=== PATIENT | female | born 1980 ===

== ENCOUNTER 2017-05-13 08:37 | Emergency (ER) | payer MEDICAID, OTHER ==
[2017-05-13 09:14] VITALS: RESP 18
[2017-05-13] MEDS ORDERED: Oxycodone/Acetaminophen 5/325 mg Tab PO STA (10:00)
[2017-05-13] MEDS ORDERED: Sodium Chloride 0.9% 1,000 ML IV ONE (10:02)
--- NOTE | 2017-05-13 10:02 | C.PDOC ---
History Of Present Illness FEVER, MYALGIA CHILLS X 2 WEEKS. +SICK CONTACT W FLU. EVAL 05/10 @ [facility], NEG UCX. PERSIST SX EXAM +RIGOR HEENT NEG LUNGS CTA B/L NO W/R/R ABD NEG REMAINDER NEG Time Seen by Provider: 05/13/17 09:48 Chief Complaint (Nursing): Flu-like Symptoms History Per: Patient History/Exam Limitations: no limitations Onset/Duration Of Symptoms: Days (2 weeks) Sick Contacts (Context): Family Member(s) (sick contact with flu) Past Medical History Reviewed: Historical Data, Nursing Documentation, Vital Signs Vital Signs: Last Vital Signs Temp 101.2 F H 05/13/17 09:08 Pulse 113 H 05/13/17 09:08 Resp 18 05/13/17 09:08 BP 115/73 05/13/17 09:08 Pulse Ox 99 05/13/17 10:46 Surgical History: Family History: States: No Known Family Hx - Social History Hx Alcohol Use: Yes Hx Substance Use: No - Immunization History Hx Tetanus Toxoid Vaccination: No Hx Influenza Vaccination: No Hx Pneumococcal Vaccination: No Review Of Systems Except As Marked, All Systems Reviewed And Found Negative. Constitutional: Positive for: Fever, Chills, Other ((+) myalgia) Cardiovascular: Negative for: Chest Pain Respiratory: Negative for: Shortness of Breath Gastrointestinal: Negative for: Vomiting Musculoskeletal: Negative for: Neck Pain Physical Exam - Physical Exam Appears: Non-toxic, No Acute Distress, Other ((+) rigor) Skin: Warm, Dry Head: Atraumatic, Normacephalic Ear(s): Bilateral: Normal Oral Mucosa: Moist Throat: Normal, No Erythema, No Exudate, No Drooling Neck: Normal, Normal ROM, Supple Respiratory: Normal Breath Sounds, No Rales, No Rhonchi, No Stridor, No Wheezing Extremity: Normal ROM, No Swelling Neurological/Psych: Oriented x3, Normal Speech, Normal Motor ED Course And Treatment - Laboratory Results Result Diagrams: 05/13/17 10:37 O2 Sat by Pulse Oximetry: 99 (RA) Pulse Ox Interpretation: Normal Progress - Re-Evaluation Re-evaluation Note: 05/13/17 11:21 FEELS BETTER EXAM IMPROVED FROM PRIOR. REQUESTING DC HOME - Data Reviewed Data Reviewed: Lab, Old records Medical Decision Making Medical Decision Making: PLAN: * BMP * Influenza * Tylenol PO * Zofran PO * Morphine IVP * Toradol IVP * Sodium Chloride IV Disposition Counseled Patient/Family Regarding: Studies Performed, Diagnosis, Need For Followup, Rx Given - Disposition Referrals: YOUR,PMD [Other] Disposition: HOME/ ROUTINE Disposition Time: 11:22 Condition: IMPROVED Prescriptions: Acetaminophen/Codeine [Tylenol/Codeine 300 MG/30 MG] 1 tab PO Q4H #12 tab Ibuprofen [Motrin] 600 mg PO Q6 #30 tab Instructions: Influenza (ED) Forms: [employer] ([place]ak[place]), Work Excuse - Clinical Impression Clinical Impression: Influenza - Scribe Statement The provider has reviewed the documentation as recorded by the Tam Newby Provider Attestation: All medical record entries made by the Franciscoibhiral were at my direction and personally dictated by me. I have reviewed the chart and agree that the record accurately reflects my personal performance of the history, physical exam, medical decision making, and the department course for this patient. I have also personally directed, reviewed, and agree with the discharge instructions and disposition.
[2017-05-13 10:53] LABS: BLOOD UREA NITROGEN 10 mg/dL (7-17); CALCIUM 8.5 mg/dl (8.6-10.4); GFR AFRICAN-AMERICAN > 60; GFR NON-AFRICAN AMERICAN > 60
[2017-05-13 11:40] VITALS: BP 125/60; PULSE 86; TEMP 99.5; O2SAT 100
== END 2017-05-13 11:39 | disposition home or self-care (01) ==
LOC: C.ER 08:37
DX: J11.1 Influenza due to unidentified influenza virus with other respiratory manifestations (principal); F17.210 Nicotine dependence, cigarettes, uncomplicated
CPT/HCPCS: 80048; 87804; 96361; 96374; 96375; 99284; J1885; J2270; J2405; J7040

== ENCOUNTER 2017-06-12 01:37 | Emergency (ER) | payer OTHER, MEDICAID ==
[2017-06-12 01:53] VITALS: BP 114/81; PULSE 86; RESP 20; TEMP 98.4; O2SAT 100
== END 2017-06-12 01:58 | disposition left against medical advice (07) ==
LOC: C.ER 01:37
DX: Z02.89 Encounter for other administrative examinations (principal); J11.1 Influenza due to unidentified influenza virus with other respiratory manifestations